=== PATIENT | male | born 1965 | race Caucasian/White ===

== ENCOUNTER 2021-05-20 11:06 | Inpatient (IN) | payer OTHER, SELFPAY ==
--- NOTE | ~2021-05-20 | CT_ITS ---
EXAMINATION: CT HEAD WITHOUT CONTRAST CLINICAL INFORMATION: New onset of psychosis. COMPARISON: None TECHNIQUE: Contiguous axial imaging was performed from the skull base to vertex without intravenous administration of contrast. This CT examination was performed using dose optimization techniques as appropriate, variously including the following: *Automated exposure control *Adjustment of mA and/or kV according to patient size (this includes techniques or standardized protocols for targeted exams where dose is matched to indication/reason for exam; i.e. extremities or head) *Use of iterative reconstruction technique DLP: 811 mGy-cm FINDINGS: There is no evidence of acute intracranial hemorrhage or territorial infarction. No abnormal mass effect or midline shift is seen. Hannah to white matter differentiation is well preserved. No extra-axial fluid collections are identified. The ventricles are normal in size. There is no abnormal attenuation within the brain parenchyma. The osseous structures and soft tissues are normal. The mastoid air cells and visualized portions of the paranasal sinuses are well aerated. CT/CT head/brain wo con IMPRESSION: No acute intracranial process seen.
[2021-05-20 11:14] VITALS: BP 150/83; PULSE 110; RESP 18; TEMP 36.9; O2SAT 98; BMI 31.7
--- NOTE | 2021-05-20 11:37 | MHC.RECOVRN ---
T/w received call from pts PCP with concerns of new onset psychosis in the last month. Documentation of pts last two PCP visits were faxed. CARE Team and sweatband shaper aware.
[2021-05-20 11:44] VITALS: BP 126/87; PULSE 97; RESP 19; TEMP 37.3; O2SAT 97
--- NOTE | 2021-05-20 12:05 | ECG_ITS ---
Test Reason : medical evaluation Blood Pressure : / mmHG Vent. Rate : 083 BPM Atrial Rate : 083 BPM P-R Int : 180 ms QRS Dur : 098 ms QT Int : 352 ms P-R-T Axes : 055 000 035 degrees QTc Int : 413 ms Normal sinus rhythm Normal ECG No previous ECGs available Referred By: Abigail Wray Electronically Signed By:JESSICA DUFFY MD
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
[2021-05-20 12:49] LABS: MANUAL DIFF FLAG NO
[2021-05-20 12:51] LABS: Basophils Absolute Auto 0.1 X10*3/uL (0.0-0.2); Basophils Percent Auto 0.8 % (0-2); Eosinophils Absolute Auto 0.1 X10*3/uL (0.0-0.4); Eosinophils Percent Auto 0.9 % (0-4); Hematocrit 42.1 % (42.0-52.0); Hemoglobin 14.4 g/dl (14.0-18.0); Imm Gran Abs Auto 0.04 X10*3/uL (0.00-0.03); Imm Gran Pct Auto 0.5 % (0.0-0.4); Lymphocytes Absolute Auto 1.8 X10*3/uL (1.2-4.9); Lymphocytes Percent Auto 22.2 % (20-40); Mean Corpuscular HGB Conc 34.2 g/dl (31.0-36.0); Mean Corpuscular Hemoglobin 30.8 pg (27.0-33.0); Mean Corpuscular Volume 90.1 fL (80.0-98.0); Mean Platelet Volume 9.9 fL (9.4-12.4); Monocytes Absolute Auto 0.8 X10*3/uL (0.1-1.2); Monocytes Percent Auto 9.6 % (2-11); Neutrophils Absolute Auto 5.2 x10*3/uL (2.0-8.3); Platelet Count 216 X10*3/uL (160-400); Red Blood Count 4.67 X10*6/uL (4.60-5.80); Red Cell Distribution Width 12.9 % (11.0-16.0); White Blood Count 7.9 X10*3/uL (4.8-10.8)
[2021-05-20 13:03] LABS: Ethanol < 10 mg/dL
[2021-05-20 13:07] LABS: Alanine Aminotransferase 26 U/L (0-40); Albumin Level 4.5 g/dL (3.5-5.0); Alkaline Phosphatase 98 U/L (39-117); Anion Gap 11 (12-20); Aspartate Amino Transferase 17 U/L (5-37); Bilirubin Direct < 0.2 mg/dL (0.0-0.5); Bilirubin Total 0.4 mg/dL (0.0-1.0); Blood Urea Nitrogen 14 mg/dL (9-16); Calcium 9.7 mg/dL (8.4-10.2); Carbon Dioxide 28 mmol/L (22-29); Chloride 107 mmol/L (96-108); Creatinine Clr Calc Pharmacy 83.5; Estimated Glomerular Filt Rate > 60; Glucose Random 98 mg/dL (60-115); Magnesium 2.4 mg/dL (1.6-2.6); Potassium 4.2 mmol/L (3.3-5.1); Sodium 142 mmol/L (135-145); Total Protein 7.4 g/dL (6.5-8.0)
[2021-05-20 13:12] LABS: COVID-19 Test Negative (Negative); IDNOW Serial# 16C4AD1C
[2021-05-20 13:27] LABS: TSH reflex Free T4 2.21 uIU/mL (0.32-4.0)
[2021-05-20 15:13] LABS: Amphetamine Screen Urine Not Detected (Not Detect); Barbiturates, Urine Not Detected (Not Detect); Benzodiazepines Screen Urine Not Detected (Not Detect); Cannabinoid Screen Urine POSITIVE (Not Detect); Cocaine Screen Urine Not Detected (Not Detect); Fentanyl, urine Not Detected (Not Detect); Opiate Screen Urine Not Detected (Not Detect); Phencyclidine Screen Urine Not Detected (Not Detect)
[2021-05-20 15:33] LABS: Appearance Urine CLEAR; Color Urine YELLOW; Glucose Urine UA NEG (NEG); Leukocyte Esterase Urine NEG (NEG); Nitrite Urine NEG (NEG); Urine Blood NEG (NEG); Urine Ketones NEG (NEG); Urine Protein NEG (NEG-TRACE)
--- NOTE | 2021-05-20 19:42 | MHC.CARE ---
CARE team completed evaluation. Pt has been placed on a Section 12a pending inpt psychiatric admission.
--- NOTE | 2021-05-21 | ECG_ITS ---
Test Reason : MEDCLEARANCE Blood Pressure : / mmHG Vent. Rate : 078 BPM Atrial Rate : 078 BPM P-R Int : 168 ms QRS Dur : 096 ms QT Int : 364 ms P-R-T Axes : 046 001 037 degrees QTc Int : 414 ms Normal sinus rhythm with sinus arrhythmia Normal ECG No previous ECGs available Referred By: Abigail Wray Electronically Signed By:JESSICA DUFFY MD
[2021-05-21 06:11] VITALS: BP 144/91; PULSE 94; RESP 18; TEMP 36.4; O2SAT 98
--- NOTE | 2021-05-21 07:04 | PC.NURSE ---
Report received. PT currently resting, denies complaints. PT is inpatient bedsearch.
[2021-05-21 10:40] VITALS: BP 142/89; PULSE 97; TEMP 37.3; O2SAT 94
[2021-05-21 11:32] LABS: COVID-19 Test Negative (Negative)
[2021-05-21 18:41] VITALS: BP 146/94; PULSE 97; RESP 18; TEMP 37.2; O2SAT 95
[2021-05-21 22:07] VITALS: BMI 30.4
[2021-05-21 22:17] VITALS: BP 164/96; PULSE 101; TEMP 36.6; O2SAT 98
[2021-05-21] MEDS: hydrOXYzine HCL 25 MG TABLET PO (23:24)
[2021-05-22] MEDS: traZODone HCL 50 MG TABLET PO (01:01)
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
[2021-05-22 08:43] VITALS: BP 127/86; PULSE 111; RESP 17; TEMP 36.6; O2SAT 98
[2021-05-22 08:58] VITALS: BMI 30.5
[2021-05-22 09:47] LABS: Cholesterol 293 mg/dL; HDL Cholesterol 34 mg/dL; LDL Cholesterol Calculated 213 mg/dl; Magnesium 2.4 mg/dL (1.6-2.6); Triglycerides 234 mg/dL
[2021-05-22 09:59] LABS: Free T4 (Free Thyroxine) 0.96 ng/dL (0.71-1.85); Thyroid Stimulating Hormone 2.18 uIU/mL (0.32-4.0)
[2021-05-22 10:22] LABS: Estimated Average Glucose 105 mg/dL; Hemoglobin A1c % 5.3 %
[2021-05-22 10:38] LABS: Folate 13.8 ng/mL (> or = 4.0); Vitamin B12 < 146 pg/mL (200-900)
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
[2021-05-22] MEDS: hydrOXYzine HCL 25 MG TABLET PO (21:14)
[2021-05-22 21:15] VITALS: BP 137/83; PULSE 97; RESP 17; TEMP 36.7; O2SAT 100
[2021-05-23 08:46] VITALS: BP 145/75; PULSE 107; RESP 18; TEMP 36.7; O2SAT 97
[2021-05-23] MEDS: Famotidine 20 MG TABLET PO (11:15)
[2021-05-23] MEDS: Omeprazole 20 MG CAPSULE.DR PO (11:15)
--- NOTE | 2021-05-23 18:12 | P.PNPSI_ITS ---
Subjective Subjective Date of Service: 05/23/21 Reason For Visit: Psychosis Interim History: Patient seen and discussed with team. Patient evaluated today and upon interview we discussed his hx of angry outbursts, as history was provided by his ex and daughter on admission. Pt says his mood is not that bad. He is reluctant to agree that he has an anger issue but says he can be hot headed. He reports he is not opposed to taking something for anxiety. Discussed risperdal, as this can be anxiolytic and help with anger, agitation. Pt says he thinks he was on risperdal years ago. In the milieu, patient is safe and appropriate in behavior. Denies SI/SIB/HI upon inquiry. Denies irritability or assaultive ideation. Says he feels safe. Medication Compliance: Yes Side effects from medications: No Attending Groups: Intermittent Review of Systems Acute medical concerns: No Medical Review of Systems: unchanged Mental Status Exam Mental Status Exam Narrative: A&O. In casual attire, overweight, well groomed. Good eye contact, attentive. No Tics or Tremors. No abnormal involuntary movements. Calm, cooperative, engaged. Non-pressured speech, spontaneous with regular rate and rhythm, normal volume and prosody. No prolonged speech latency or dysarthria. Mood is ?not bad,? affect is euthymic. Denies SI/SIB/HI upon inquiry. Denies A/VH. Endorses fixed somatic and paranoid delusional thought content. Thoughts are bizarre in james nt. No known cognitive or memory impairment. Insight/ Judgment limited but adequate. Diagnostics Vital Signs (24Hr): Vital Signs - 24 hr 05/22/21 21:15 05/23/21 08:46 Temperature 98.1 F 98.0 F Pulse Rate 97 107 H Respiratory Rate 17 18 Blood Pressure 137/83 145/75 H Pulse Oximetry 100 97 BMI result Body Mass Index 30.5 Labs Results: 05/20/21 12:41 05/20/21 12:41 Labs: Laboratory Results - last 48 hr 05/22/21 05/22/21 05/22/21 08:53 08:53 08:53 Estimat Average Glucose 105 Hemoglobin A1c % 5.3 Magnesium 2.4 Triglycerides 234 Cholesterol 293 LDL Cholesterol, Calc 213 HDL Cholesterol 34 Vitamin B12 < 146 L Folate 13.8 TSH 2.18 Free T4 0.96 Imaging Radiology Impressions: ITS Impressions Head CT 05/20/21 12:30 IMPRESSION: No acute intracranial process seen. Medications Medications Current Medications Acetaminophen (Acetaminophen 325 Mg Tablet) 650 mg PO Q6H PRN PRN Reason: Headache/Pain Mild Scale (1-3) Al Hydroxide/Mg Hydroxide (Magnesium Hydrox/Alum Hydrox 30 Ml Oral.Susp) 30 ml PO Q6H PRN PRN Reason: Heartburn/Nausea Famotidine (Famotidine 20 Mg Tablet) 20 mg PO DAILY [facility] Last Admin: 05/23/21 11:15 Dose: 20 mg Documented by: Hydroxyzine HCl (Hydroxyzine Hcl 25 Mg Tablet) 25 mg PO Q6H PRN PRN Reason: Anxiety Last Admin: 05/22/21 21:14 Dose: 25 mg Documented by: Magnesium Hydroxide (Milk Of Magnesia 30 Ml Oral.Susp) 30 ml PO DAILY PRN PRN Reason: Constipation Omeprazole (Omeprazole 20 Mg Capsule.Dr) 20 mg PO DAILY [facility] Last Admin: 05/23/21 11:15 Dose: 20 mg Documented by: Trazodone HCl (Trazodone Hcl 50 Mg Tablet) 50 mg PO BEDTIME PRN PRN Reason: Insomnia Last Admin: 05/22/21 01:01 Dose: 50 mg Documented by: Allergies Allergies Allergy/AdvReac Type Severity Reaction Status Date / Time No Known Allergies Allergy Verified 05/20/21 14:46 Assessment & Plan Assessment & Plan (1) Delusional disorder: Status: Acute Code(s): F22 - Delusional disorders Plan Sam is a 55 y.o. Male who carries a dx of delusional disorder. Pt presented to [facility] on 05/20/21 from his PCP office after being seen by MEDICAL TRANSCRIPTIONIST Adin Zuniga. Pt endorsed somatic delusions and explained that at his work he had been sprayed by toxic industrial chemicals two years ago and this has resulted in kidney and liver damage, however there is not evidence of this. Per CARE team michelle, pt recently had firearms removed from his home due to threatening neighbors, has hx of angry outbursts. Plan:? -Pt says he Doesnt feel like he needs any psychotropic medication needs. Signed 3 day notice. Will monitor pt for sx of mood lability, agitation. Will continue to engage and assess for utility of a mood stabilizer for anger outbursts, agitation. 05/23: Will start risperdal 0.5 mg BID for paranoid ideation, agitation, anxiety. Reviewed risks and benefits including EPS, prolactin increase, wt gain. Q15 min safety checks, CV, 3 day notice Monitor response to medications. Monitor for safety in the milieu. Discharge on stabilization. Patient seen. Chart reviewed. Discussed with team. Obtain collateral contact info?as needed I spent minutes with the patient and/or on the patient floor today, greater than?50% of which was spent counseling/coordinating care. Patient educated on: medication risk/benefits Reason for contiued inpatient stay Substantial Risk for: rapid decompensation and med/psych decompensation
[2021-05-23 20:20] VITALS: BP 151/76; PULSE 90; RESP 18; TEMP 36.7; O2SAT 95
[2021-05-23] MEDS: risperiDONE 0.5 MG TABLET PO (21:16)
[2021-05-24] MEDS: traZODone HCL 50 MG TABLET PO ×2 (00:56→21:04)
[2021-05-24] MEDS: Omeprazole 20 MG CAPSULE.DR PO (09:26)
[2021-05-24] MEDS: risperiDONE 0.5 MG TABLET PO ×2 (09:26→21:04)
[2021-05-24 09:28] VITALS: BP 122/73; PULSE 100; RESP 18; TEMP 36.6; O2SAT 97
--- NOTE | 2021-05-24 12:11 | HO.PSYCHPN ---
Subjective Subjective Date of Service: 05/24/21 Reason For Visit: Psychosis Subjective Notes: 3 Day Interim History: Patient seen and discussed with staff. Pt is polite but guarded. He declines in depth discussion with this senior writer. In the milieu, patient is safe and appropriate in behavior. Denies SI/SIB/HI upon inquiry. Denies irritability or assaultive ideation. Says he feels safe. Medication Compliance: Yes Side effects from medications: No Attending Groups: No Review of Systems Acute medical concerns: No Medical Review of Systems: unchanged Review of Systems Review of Systems CVS: No c/o chest pain, palpitations, no SOB INFORMATION TECHNOLOGY AUDITOR: No c/o dizziness, headache GI: No c/o Nausea, Vomiting, diarrhea, constipation or heartburn Mental Status Exam Mental Status Exam Narrative: A&O. In casual attire, well groomed. Good eye contact, attentive. No Tics or Tremors. No abnormal involuntary movements. Calm, cooperative. Non-pressured speech, spontaneous with regular rate and rhythm, normal volume and prosody. No prolonged speech latency or dysarthria. Mood is fair. affect is flat. Denies SI/SIB/HI upon inquiry. Denies A/VH. Pt is guarded about thought process. No known cognitive or memory impairment. Insight/ Judgment limited but adequate. Diagnostics Vital Signs (24Hr): Vital Signs - 24 hr 05/23/21 20:20 05/24/21 09:28 Temperature 98.1 F 98 F Pulse Rate 90 100 Respiratory Rate 18 18 Blood Pressure 151/76 H 122/73 Pulse Oximetry 95 97 BMI result Body Mass Index 30.5 Labs Results: 05/20/21 12:41 05/20/21 12:41 Imaging Radiology Impressions: ITS Impressions Head CT 05/20/21 12:30 IMPRESSION: No acute intracranial process seen. Medications Medications Current Medications Acetaminophen (Acetaminophen 325 Mg Tablet) 650 mg PO Q6H PRN PRN Reason: Headache/Pain Mild Scale (1-3) Al Hydroxide/Mg Hydroxide (Magnesium Hydrox/Alum Hydrox 30 Ml Oral.Susp) 30 ml PO Q6H PRN PRN Reason: Heartburn/Nausea Famotidine (Famotidine 20 Mg Tablet) 20 mg PO DAILY [facility] Last Admin: 05/24/21 09:27 Dose: Not Given Documented by: Hydroxyzine HCl (Hydroxyzine Hcl 25 Mg Tablet) 25 mg PO Q6H PRN PRN Reason: Anxiety Last Admin: 05/22/21 21:14 Dose: 25 mg Documented by: Magnesium Hydroxide (Milk Of Magnesia 30 Ml Oral.Susp) 30 ml PO DAILY PRN PRN Reason: Constipation Omeprazole (Omeprazole 20 Mg Capsule.Dr) 20 mg PO DAILY [facility] Last Admin: 05/24/21 09:26 Dose: 20 mg Documented by: Risperidone (Risperidone 0.5 Mg Tablet) 0.5 mg PO BID [facility] Last Admin: 05/24/21 09:26 Dose: 0.5 mg Documented by: Trazodone HCl (Trazodone Hcl 50 Mg Tablet) 50 mg PO BEDTIME PRN PRN Reason: Insomnia Last Admin: 05/24/21 00:56 Dose: 50 mg Documented by: Allergies Allergies Allergy/AdvReac Type Severity Reaction Status Date / Time No Known Allergies Allergy Verified 05/20/21 14:46 Assessment & Plan Assessment & Plan (1) Delusional disorder: Status: Acute Code(s): F22 - Delusional disorders Plan Sam is a 55 y.o. Male who carries a dx of delusional disorder. Pt presented to [facility] on 05/20/21 from his PCP office after being seen by ZOOKEEPER Adin Zuniga. Pt endorsed somatic delusions and explained that at his work he had been sprayed by toxic industrial chemicals two years ago and this has resulted in kidney and liver damage, however there is not evidence of this. Per CARE team michelle, pt recently had firearms removed from his home due to threatening neighbors, has hx of angry outbursts. Plan:? -Pt says he Doesnt feel like he needs any psychotropic medication needs. Signed 3 day notice. Will monitor pt for sx of mood lability, agitation. Will continue to engage and assess for utility of a mood stabilizer for anger outbursts, agitation. 05/23: Will start risperdal 0.5 mg BID for paranoid ideation, agitation, anxiety. Reviewed risks and benefits including EPS, prolactin increase, wt gain. 05/24 continue treatment plan Q15 min safety checks, CV, 3 day notice Monitor response to medications. Monitor for safety in the milieu. Discharge on stabilization. Patient seen. Chart reviewed. Discussed with team. Obtain collateral contact info?as needed I spent __15____ minutes with the patient and/or on the patient floor today, greater than?50% of which was spent counseling/coordinating care. Patient educated on: medication risk/benefits and therapeutic strategies Informed Consent: further education needed Reason for contiued inpatient stay Substantial Risk for: harm to self, inability to function and rapid decompensation
[2021-05-24 20:34] VITALS: BP 137/73; PULSE 104; RESP 18; TEMP 36.3; O2SAT 96
[2021-05-25] MEDS: Famotidine 20 MG TABLET PO (08:55)
[2021-05-25] MEDS: Omeprazole 20 MG CAPSULE.DR PO (08:55)
[2021-05-25] MEDS: risperiDONE 0.5 MG TABLET PO ×2 (08:56→20:32)
[2021-05-25 08:57] VITALS: BP 123/77; PULSE 99; RESP 14; TEMP 36.6; O2SAT 97
--- NOTE | 2021-05-25 16:17 | P.PNPSI_ITS ---
Subjective Subjective Date of Service: 05/25/21 Reason For Visit: Psychosis Subjective Notes: 3 Day Interim History: Patient seen and discussed with staff. Pt is polite but guarded. He declines in depth discussion with this food writer. In the milieu, patient is safe and appropriate in behavior. Denies SI/SIB/HI upon inquiry. Denies irritability or assaultive ideation. Says he feels safe. Medication Compliance: Yes Side effects from medications: No Attending Groups: Intermittent Review of Systems Acute medical concerns: No Medical Review of Systems: unchanged Review of Systems Review of Systems CVS: No c/o chest pain, palpitations, no SOB LOOM FIXER: No c/o dizziness, headache GI: No c/o Nausea, Vomiting, diarrhea, constipation or heartburn Mental Status Exam Mental Status Exam Narrative: A&O. In casual attire, well groomed. Good eye contact, attentive. No Tics or Tremors. No abnormal involuntary movements. Calm, cooperative. Non-pressured speech, spontaneous with regular rate and rhythm, normal volume and prosody. No prolonged speech latency or dysarthria. Mood is fair. affect is flat. Denies SI/SIB/HI upon inquiry. Denies A/VH. Pt is guarded about thought process. No known cognitive or memory impairment. Insight/ Judgment limited but adequate. Diagnostics Vital Signs (24Hr): Vital Signs - 24 hr 05/24/21 20:34 05/25/21 08:57 Temperature 97.4 F 97.8 F Pulse Rate 104 H 99 Respiratory Rate 18 14 Blood Pressure 137/73 123/77 Pulse Oximetry 96 97 BMI result Body Mass Index 30.5 Labs Results: 05/20/21 12:41 05/20/21 12:41 Imaging Radiology Impressions: ITS Impressions Head CT 05/20/21 12:30 IMPRESSION: No acute intracranial process seen. Medications Medications Current Medications Acetaminophen (Acetaminophen 325 Mg Tablet) 650 mg PO Q6H PRN PRN Reason: Headache/Pain Mild Scale (1-3) Al Hydroxide/Mg Hydroxide (Magnesium Hydrox/Alum Hydrox 30 Ml Oral.Susp) 30 ml PO Q6H PRN PRN Reason: Heartburn/Nausea Famotidine (Famotidine 20 Mg Tablet) 20 mg PO DAILY [facility] Last Admin: 05/25/21 08:55 Dose: 20 mg Documented by: Hydroxyzine HCl (Hydroxyzine Hcl 25 Mg Tablet) 25 mg PO Q6H PRN PRN Reason: Anxiety Last Admin: 05/22/21 21:14 Dose: 25 mg Documented by: Magnesium Hydroxide (Milk Of Magnesia 30 Ml Oral.Susp) 30 ml PO DAILY PRN PRN Reason: Constipation Omeprazole (Omeprazole 20 Mg Capsule.Dr) 20 mg PO DAILY [facility] Last Admin: 05/25/21 08:55 Dose: 20 mg Documented by: Risperidone (Risperidone 0.5 Mg Tablet) 0.5 mg PO BID [facility] Last Admin: 05/25/21 08:56 Dose: 0.5 mg Documented by: Trazodone HCl (Trazodone Hcl 50 Mg Tablet) 50 mg PO BEDTIME PRN PRN Reason: Insomnia Last Admin: 05/24/21 21:04 Dose: 50 mg Documented by: Allergies Allergies Allergy/AdvReac Type Severity Reaction Status Date / Time No Known Allergies Allergy Verified 05/20/21 14:46 Assessment & Plan Assessment & Plan (1) Delusional disorder: Status: Acute Code(s): F22 - Delusional disorders Plan Sam is a 55 y.o. Male who carries a dx of delusional disorder. Pt presented to [facility] on 05/20/21 from his PCP office after being seen by LEI MAKER Adin Zuniga. Pt endorsed somatic delusions and explained that at his work he had been sprayed by toxic industrial chemicals two years ago and this has resulted in kidney and li victorino damage, however there is not evidence of this. Per CARE team robal, pt recently had firearms removed from his home due to threatening neighbors, has hx of angry outbursts. Plan:? -Pt says he Doesnt feel like he needs any psychotropic medication needs. Signed 3 day notice. Will monitor pt for sx of mood lability, agitation. Will continue to engage and assess for utility of a mood stabilizer for anger outbursts, agitation. 05/23: Will start risperdal 0.5 mg BID for paranoid ideation, agitation, anxiety. Reviewed risks and benefits including EPS, prolactin increase, wt gain. 05/24 continue treatment plan 05/25 continue current treatment plan Q15 min safety checks, CV, 3 day notice Monitor response to medications. Monitor for safety in the milieu. Discharge on stabilization. Patient seen. Chart reviewed. Discussed with team. Obtain collateral contact info?as needed I spent minutes with the patient and/or on the patient floor today, greater than?50% of which was spent counseling/coordinating care. Reason for contiued inpatient stay Substantial Risk for: harm to self, inability to function and rapid decompensation
[2021-05-25 18:00] VITALS: BP 134/87; PULSE 98; RESP 18; TEMP 36.2; O2SAT 99
[2021-05-25] MEDS: traZODone HCL 50 MG TABLET PO (20:32)
[2021-05-26] MEDS: Famotidine 20 MG TABLET PO (08:12)
[2021-05-26] MEDS: Omeprazole 20 MG CAPSULE.DR PO (08:12)
[2021-05-26] MEDS: risperiDONE 0.5 MG TABLET PO ×2 (08:12→13:04)
[2021-05-26 09:00] VITALS: BP 134/80; PULSE 101; RESP 18; TEMP 36.7; O2SAT 97
--- NOTE | 2021-05-26 10:42 | PC.NURSE ---
Patient revoked 3 day notice but requested to sign a new one.
[2021-05-26] MEDS: Cyanocobalamin (Vitamin B-12) 100 MCG TABLET PO (13:04)
--- NOTE | 2021-05-26 16:12 | HO.PSYCHPN ---
Subjective Subjective Date of Service: 05/26/21 Reason For Visit: Psychosis Interim History: extremely loquacious, tangential/circumstantial. delusions are not limited and focused but rather more broad and widespread, making delusional disorder less likely. in addition, thought disorder supports psychotic Dx. pt asks about dementia, MD tells him he does not appear to have any cognitive problems, so that is not likely. he is pleased. he feels the risperidone has allowed him to feel less anxious and he is willing to increae the dose to 1 mg BID. MD informs him of B12 deficiency, he agrees to start B12 therapy. no other complaints or requests. rescinded his 3-day notice on the advice of staff. per staff, 3-day now up on . pleasant, social. saying meds help. denies dep/anx. sleeping and eating well. slept about 7 hours overnight. taking risperidone 0.5 BID. Mental Status Exam Mental Status Exam Narrative: A&O. In casual attire, well groomed. Good eye contact, attentive. No Tics or Tremors. No abnormal involuntary movements. Calm, cooperative. moderately pressured speech, spontaneous with incr rate, normal loudness and prosody. No prolonged speech latency or dysarthria. Mood is fair. affect is full range, hyper-intense, non-labile. No known cognitive or memory impairment. Insight/ Judgment impaired. Diagnostics Vital Signs (24Hr): Vital Signs - 24 hr 05/25/21 18:00 05/26/21 09:00 Temperature 97.2 F 98.0 F Pulse Rate 98 101 H Respiratory Rate 18 18 Blood Pressure 134/87 134/80 Pulse Oximetry 99 97 BMI result Body Mass Index 30.5 Labs Results: 05/20/21 12:41 05/20/21 12:41 Imaging Radiology Impressions: ITS Impressions Head CT 05/20/21 12:30 IMPRESSION: No acute intracranial process seen. Medications Medications Current Medications Acetaminophen (Acetaminophen 325 Mg Tablet) 650 mg PO Q6H PRN PRN Reason: Headache/Pain Mild Scale (1-3) Al Hydroxide/Mg Hydroxide (Magnesium Hydrox/Alum Hydrox 30 Ml Oral.Susp) 30 ml PO Q6H PRN PRN Reason: Heartburn/Nausea Cyanocobalamin (Cyanocobalamin (Vitamin B-12) 100 Mcg Tablet) 100 mcg PO DAILY [facility] Last Admin: 05/26/21 13:04 Dose: 100 mcg Documented by: Famotidine (Famotidine 20 Mg Tablet) 20 mg PO DAILY [facility] Last Admin: 05/26/21 08:12 Dose: 20 mg Documented by: Hydroxyzine HCl (Hydroxyzine Hcl 25 Mg Tablet) 25 mg PO Q6H PRN PRN Reason: Anxiety Last Admin: 05/22/21 21:14 Dose: 25 mg Documented by: Magnesium Hydroxide (Milk Of Magnesia 30 Ml Oral.Susp) 30 ml PO DAILY PRN PRN Reason: Constipation Omeprazole (Omeprazole 20 Mg Capsule.Dr) 20 mg PO DAILY [facility] Last Admin: 05/26/21 08:12 Dose: 20 mg Documented by: Risperidone (Risperidone 1 Mg Tablet) 1 mg PO BID [facility] Trazodone HCl (Trazodone Hcl 50 Mg Tablet) 50 mg PO BEDTIME PRN PRN Reason: Insomnia Last Admin: 05/25/21 20:32 Dose: 50 mg Documented by: Allergies Allergies Allergy/AdvReac Type Severity Reaction Status Date / Time No Known Allergies Allergy Verified 05/20/21 14:46 Assessment & Plan Assessment & Plan (1) Psychotic disorder: Status: Acute Code(s): F29 - Unspecified psychosis not due to a substance or known physiological condition Plan Sam is a 55 y.o. Male who carries a dx of delusional disorder. Pt presented [place] [facility] on 05/20/21 from his PCP office after being seen by OUTSIDE COLLECTOR Adin Zuniga. Pt endorsed somatic delusions and explained that at his work he had been sprayed by toxic industrial chemicals two years ago and this has resulted in kidney and liver damage, however there is not evidence of this. Per CARE team robal, pt recently had firearms removed from his home due to threatening neighbors, has hx of angry outbursts. Plan:? -Pt says he Doesnt feel like he needs any psychotropic medication needs. Signed 3 day notice. Will monitor pt for sx of mood lability, agitation. Will continue to engage and assess for utility of a mood stabilizer for anger outbursts, agitation. 05/23: started risperdal 0.5 mg BID for paranoid ideation, agitation, anxiety. Reviewed risks and benefits including EPS, prolactin increase, wt gain. 05/24 continued treatment plan 05/25 continued treatment plan 05/26: risperidone increased to 1 BID. B12 supplementation started. I spent __35____ minutes with the patient and/or on the patient floor today, greater than?50% of which was spent counseling/coordinating care. Reason for contiued inpatient stay Substantial Risk for: harm to others and rapid decompensation
[2021-05-26] MEDS: Cyanocobalamin (Vitamin B-12) 1,000 MCG/ML VIAL 1000 MCG IM (16:49)
[2021-05-26 18:00] VITALS: BP 130/82; PULSE 105; RESP 16; TEMP 36.2; O2SAT 98
[2021-05-26] MEDS: risperiDONE 1 MG TABLET PO (20:06)
[2021-05-26] MEDS: traZODone HCL 50 MG TABLET PO (20:06)
[2021-05-27] MEDS: Omeprazole 20 MG CAPSULE.DR PO (08:20)
[2021-05-27] MEDS: risperiDONE 1 MG TABLET PO ×2 (08:20→20:45)
[2021-05-27] MEDS: Cyanocobalamin (Vitamin B-12) 100 MCG TABLET PO (08:21)
[2021-05-27] MEDS: Famotidine 20 MG TABLET PO (08:21)
[2021-05-27 08:54] VITALS: BP 129/77; PULSE 101; RESP 18; TEMP 35.8; O2SAT 96
--- NOTE | 2021-05-27 15:48 | P.PNPSI_ITS ---
Subjective Subjective Date of Service: 05/27/21 Reason For Visit: Psychosis Interim History: pt continues to feel well. no complaints or requests. anxiety is lowered. mood fine. no fixation today on delusional content. per staff, more relaxed. risperidone reducing anxiety significantly. slept about 9 hours. plan to DC . Mental Status Exam Mental Status Exam Narrative: A&O. In casual attire, well groomed. Good eye contact, attentive. No Tics or Tremors. No abnormal involuntary movements. Calm, cooperative. speach spontaneous with nml rate, normal loudness and prosody. No prolonged speech latency or dysarthria. Mood is fine. affect is full range, normo-intense, non-labile. No known cognitive or memory impairment. Insight/ Judgment improving. Diagnostics Vital Signs (24Hr): Vital Signs - 24 hr 05/26/21 18:00 05/27/21 08:54 Temperature 97.2 F 96.5 F L Pulse Rate 105 H 101 H Respiratory Rate 16 18 Blood Pressure 130/82 129/77 Pulse Oximetry 98 96 BMI result Body Mass Index 30.5 Labs Results: 05/20/21 12:41 05/20/21 12:41 Imaging Radiology Impressions: ITS Impressions Head CT 05/20/21 12:30 IMPRESSION: No acute intracranial process seen. Medications Medications Current Medications Acetaminophen (Acetaminophen 325 Mg Tablet) 650 mg PO Q6H PRN PRN Reason: Headache/Pain Mild Scale (1-3) Al Hydroxide/Mg Hydroxide (Magnesium Hydrox/Alum Hydrox 30 Ml Oral.Susp) 30 ml PO Q6H PRN PRN Reason: Heartburn/Nausea Cyanocobalamin (Cyanocobalamin (Vitamin B-12) 100 Mcg Tablet) 100 mcg PO DAILY [facility] Last Admin: 05/27/21 08:21 Dose: 100 mcg Documented by: Famotidine (Famotidine 20 Mg Tablet) 20 mg PO DAILY [facility] Last Admin: 05/27/21 08:21 Dose: 20 mg Documented by: Hydroxyzine HCl (Hydroxyzine Hcl 25 Mg Tablet) 25 mg PO Q6H PRN PRN Reason: Anxiety Last Admin: 05/22/21 21:14 Dose: 25 mg Documented by: Magnesium Hydroxide (Milk Of Magnesia 30 Ml Oral.Susp) 30 ml PO DAILY PRN PRN Reason: Constipation Omeprazole (Omeprazole 20 Mg Capsule.Dr) 20 mg PO DAILY [facility] Last Admin: 05/27/21 08:20 Dose: 20 mg Documented by: Risperidone (Risperidone 1 Mg Tablet) 1 mg PO BID [facility] Last Admin: 05/27/21 08:20 Dose: 1 mg Documented by: Trazodone HCl (Trazodone Hcl 50 Mg Tablet) 50 mg PO BEDTIME PRN PRN Reason: Insomnia Last Admin: 05/26/21 20:06 Dose: 50 mg Documented by: Allergies Allergies Allergy/AdvReac Type Severity Reaction Status Date / Time No Known Allergies Allergy Verified 05/20/21 14:46 Assessment & Plan Assessment & Plan (1) Psychotic disorder: Status: Acute Code(s): F29 - Unspecified psychosis not due to a substance or known physiological condition Plan Sam is a 55 y.o. Male who carries a dx of delusional disorder. Pt presented to [facility] on 05/20/21 from his PCP office after being seen by VET ASSISTANT Adin Zuniga. Pt endorsed somatic delusions and explained that at his work he had been sprayed by toxic industrial chemicals two years ago and this has resulted in kidney and liver damage, however there is not evidence of this. Per CARE team michelle, pt recently had firearms removed from his home due to threatening neighbors, has hx of angry outbursts. Plan:? -Pt says he Doesnt feel like he needs any psychotropic medication needs. Signed 3 day notice. Will monitor pt for sx of mood lability, agitation. Will continue to engage and assess for utility of a mood stabilizer for anger outbursts, agitation. 05/23: started risperdal 0.5 mg BID for paranoid ideation, agitation, anxiety. Reviewed risks and benefits including EPS, prolactin increase, wt gain. 05/24 continued treatment plan 05/25 continued treatment plan 05/26: risperidone increased to 1 BID. B12 supplementation started. 05/27: pt reports feeling better, attributes to B12 and risperidone. planning for discharge . I spent ___25___ minutes with the patient and/or on the patient floor today, gre ater than?50% of which was spent counseling/coordinating care. Reason for contiued inpatient stay Substantial Risk for: harm to others, inability to function and rapid decompensation
[2021-05-27] MEDS: hydrOXYzine HCL 25 MG TABLET PO (15:57)
[2021-05-27] MEDS: Acetaminophen 325 MG TABLET 650 MG PO (15:58)
[2021-05-27 20:31] VITALS: BP 146/77; PULSE 110; RESP 18; TEMP 36.6; O2SAT 95
[2021-05-27] MEDS: traZODone HCL 50 MG TABLET PO (20:45)
[2021-05-28] MEDS: Famotidine 20 MG TABLET PO (08:49)
[2021-05-28] MEDS: Omeprazole 20 MG CAPSULE.DR PO (08:49)
[2021-05-28] MEDS: risperiDONE 1 MG TABLET PO ×2 (08:49→22:00)
[2021-05-28] MEDS: Cyanocobalamin (Vitamin B-12) 100 MCG TABLET PO (08:50)
[2021-05-28 08:51] VITALS: BP 131/75; PULSE 95; RESP 18; TEMP 36.7; O2SAT 97
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
[2021-05-28 21:54] VITALS: BP 132/79; PULSE 104; RESP 18; TEMP 36.8; O2SAT 95
[2021-05-28] MEDS: traZODone HCL 50 MG TABLET PO (22:00)
[2021-05-29 07:00] VITALS: BMI 31.6
[2021-05-29] MEDS: Cyanocobalamin (Vitamin B-12) 100 MCG TABLET PO (08:43)
[2021-05-29] MEDS: Omeprazole 20 MG CAPSULE.DR PO (08:44)
[2021-05-29] MEDS: risperiDONE 1 MG TABLET PO (08:44)
[2021-05-29] MEDS: Famotidine 20 MG TABLET PO (08:44)
[2021-05-29 08:48] VITALS: BP 134/92; PULSE 102; RESP 17; TEMP 36.3; O2SAT 94
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
== END 2021-05-29 12:14 | disposition home or self-care (01) | DRG 751 ==
LOC: HO.ED 05-21 08:59 → HO.PADLT16 05-21 21:35
PROVIDERS: Nurse Practitioner Family; Admitting Provider Registered Nurse; Emergency Provider Emergency Medicine; Visit Provider Psychiatry & Neurology Psychiatry
DX: F29 Unspecified psychosis not due to a substance or known physiological condition (principal); Z20.822 Contact with and (suspected) exposure to COVID-19; Z79.899 Other long term (current) drug therapy
CPT/HCPCS: 36415; 70450; 80048; 80061; 80076; 80307; 81003; 82077; 82607; 82746; 83036; 83735; 84439; 84443; 85025; 87635; 93005; 99285